=== PATIENT | female | born 1990 | race Caucasian/White ===

== ENCOUNTER 2016-11-26 10:21 | Emergency (ER) | payer BC ==
[~2016-11-26] VITALS: Ht 152.4 cm; Wt 86.2 kg
[~2016-11-26 10:21] MED LIST: LORCET 5-325 M1 EACH PO; MOTRIN IB200 MG PO; ORAL BIRTH CONTROL
[2016-11-26] MEDS ORDERED: ONDANSETRON ODT8 MG PO (12:45)
[2016-11-26] MEDS ORDERED: PERCOCET 5-3251 EACH PO (12:45)
== END 2016-11-26 13:09 | disposition home or self-care (01) ==
LOC: ED 10:21
DX: N20.1 Calculus of ureter (principal)
CPT/HCPCS: 80053; 81001; 84703; 85025; 96361; 96374; 99283; J1885; J7030

== ENCOUNTER 2018-08-05 13:11 | Emergency (ER) | payer OTHER ==
[~2018-08-05] VITALS: Ht 152.4 cm; Wt 73.0 kg
[~2018-08-05 13:11] MED LIST changes: +ONDANSETRON ODT8 MG PO; +PERCOCET 5-3251 EACH PO
== END 2018-08-05 18:51 | disposition home or self-care (01) ==
LOC: ED 13:11
DX: O00.90 Unspecified ectopic pregnancy without intrauterine pregnancy (principal); Z87.442 Personal history of urinary calculi; Z87.891 Personal history of nicotine dependence
CPT/HCPCS: 76801; 76817; 80053; 81001; 84702; 84703; 85025; 96374; 96375; 99284-25; J1885; J2405

== ENCOUNTER 2018-10-20 08:13 | Observation (INO) | payer OTHER ==
[~2018-10-20] VITALS: Ht 152.4 cm; Wt 71.2 kg
--- NOTE | 2018-10-20 12:40 | NUR ---
PT ARRIVED TO FLOOR VIA STRETCHER. REPORTS PAIN TOLERABLE. ORIENTED TO ROOM. ASSESSMENT COMPLETED. FLUIDS STARTED. CALL LIGHT IN REACH. NPO AT THIS TIME. DENIES FURTHER NEEDS.
--- NOTE | 2018-10-20 14:01 | NUR ---
PATIENT RESTING IN BED. VISITOR IN ROOM. CALL LIGHT WITHIN REACH. NO OTHER NEEDS AT THIS TIME
--- NOTE | 2018-10-20 15:05 | NUR ---
PATIENT IN BED. RN AND VISITOR IN ROOM. PATIENT IS GOING TO TAKE A SHOWER. IV WRAPPED. CALL LIGHT WITHIN REACH. NO OTHER NEEDS AT THIS TIME
--- NOTE | 2018-10-20 16:13 | NUR ---
THIS RN TO ROOM. PT REPORTS PAIN 4/10 TOLERABLE.DENEIS NAUSEA. CALL LIGHT IN REACH. NO NEEDS.
--- NOTE | 2018-10-20 17:36 | NUR ---
PATIENT RESTING IN BED. MOM IN ROOM. VITAL SIGNS AND I&O DONE. CALL LIGHT WITHIN REACH. NO OTHER NEEDS AT THIS TIME
--- NOTE | 2018-10-20 17:57 | NUR ---
PT CHARISMA FLOOR TO SURGERY
--- NOTE | 2018-10-20 19:03 | CONS ---
[facility] [address] [place], [place] [address] Signed DATE OF CONSULTATION: 10/20/2018 CHIEF COMPLAINT: Right lower quadrant abdominal pain. HISTORY OF PRESENT ILLNESS: Tom is a 28-year-old female, otherwise healthy, who awoke early this morning around 2:00 a.m. with right lower quadrant abdominal pain. It started periumbilical and became more localized to the right lower quadrant and now it is across the lower pelvis. She came to emergency room for evaluation. In the emergency room, her white count was 10.6 with a negative beta-hCG. An ultrasound was performed because of various previous pelvic issues and really no acute findings. Consequently, a CT scan was done and the appendix showed some mild enhancement with some mild periappendiceal haziness concerning for early appendicitis. I was therefore asked to admit her as a general surgeon on-call. In the meantime, she has received IV fluids along with her Rocephin and Flagyl. She said overall she is about the same. PAST MEDICAL HISTORY: Four spontaneous abortions, kidney stones, and left-sided ectopic . PAST SURGICAL HISTORY: Diaphragm placement and laparoscopy for the left fallopian tube ectopic . SOCIAL HISTORY: She does smoke a little bit. She does not drink. She is single and has one daughter who is age 7. 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 Dr. Cornelio Barksdale is her environmental consultant. She has no primary care provider per se. Her dad is Kushal. Her mother happens to be one of our registered nurses. She prefers the [facility]. FAMILY HISTORY: There is no family history to her knowledge. REVIEW OF SYSTEMS: She had 10 systems reviewed and these were all negative except her MAINFRAME ANALYST history. ALLERGIES: None. MEDICATIONS: None. PHYSICAL EXAMINATION: Electronically Signed By: LALITHA RODAS MD 10/20/18 1903 PATIENT NAME: TOM MONTES CONSULTATION DATE OF : 89 REPORT #: [id number] PHYSICIAN: LALITHA RODAS MD PCP: NO PRIMARY CARE PHYSICIAN REPORT IS CONFIDENTIAL AND NOT TO BE RELEASED WITHOUT AUTHORIZATION [facility] [address] [place], [place] [address] Signed VITAL SIGNS: Blood pressure 111/66, heart rate 86, respiratory rate 18, temperature is 98.2. She is 97% on room air. She is 5 feet tall and 71 kg. GENERAL: Tom is a 28-year-old female, who is lying supine in her hospital bed. Her sister is in the room. She does not appear systemically ill or toxic. LUNGS: Generally clear to auscultation bilaterally. HEART: Regular rate and rhythm. ABDOMEN: Tender in the right lower quadrant. LABORATORY DATA: Her white blood cell count is 10.6, neutrophils 78, hemoglobin 13. Electrolytes unremarkable. Liver function test negative. Beta-hCG negative. Urinalysis negative. RADIOGRAPHIC STUDIES: Ultrasound of the pelvis shows a little irregular band in the uterus, but the ovaries are fine. The CT scan shows the appendix somewhat hazy with a little periappendiceal haziness as well. It is somewhat posterior and somewhat lateral. ASSESSMENT AND PLAN: Tom is a 28-year-old female who appears to present with classic appendicitis. I reviewed with her the above findings in detail. They have already been online reading about appendicitis. I also gave her a [employer] brochure on appendicitis, which she can review that in more detail. We have reviewed the location and function of the appendix. We have discussed laparoscopic versus open appendectomy. We also reviewed the risks and benefits of surgery. She has expressed understanding and would like to proceed with surgery. Lalitha Rodas MD [facility]/MODL /[id number] cc: MD Lalitha Mcadams MD Copies: CORNELIO BARKSDALE MD Electronically Signed By: LALITHA RODAS MD 10/20/18 1903 PATIENT NAME: TOM MONTES CONSULTATION DATE OF : 89 REPORT #: [id number] PHYSICIAN: LALITHA RODAS MD PCP: NO PRIMARY CARE PHYSICIAN REPORT IS CONFIDENTIAL AND NOT TO BE RELEASED WITHOUT AUTHORIZATION [facility] [address] [place] [id number] Signed LALITHA RODAS MD ~ Electronically Signed By: LALITHA RODAS MD 10/20/18 190 PATIENT NAME: TOM MONTES MARGARETTE CONSULTATION DATE OF : 89 REPORT #: [id number] PHYSICIAN: LALITHA RODAS MD PCP: NO PRIMARY CARE PHYSICIAN REPORT IS CONFIDENTIAL AND NOT TO BE RELEASED WITHOUT AUTHORIZATION
--- NOTE | 2018-10-20 19:20 | NUR ---
RECEIVED SHIFT REPORT FROM DANNYOKMARIBELL JEFFREY AT BEDSIDE. FAMILY IN ROOM, PT IN OR AT THIS TIME.
--- NOTE | 2018-10-20 19:35 | NUR ---
PT ARRIVED FROM THEN OR. VSS, PT DROWSY, BUT EASILY AWAKENS AND FOLLOWS COMMANDS. PT ON RA, O2 SAT WNL. FAMILY IN ROOM. ASSESSMENT COMPELTE. LAP SITES X3 NOTED WITH GAUZE AND TAPE. ALL SITES CDI, WILL MONITOR. PT REPORTS 7/10 PAIN, BUT DENIES NEED FOR PAIN MEDICATIONS AT THIS TIME. DENIES NAUSEA, BOWEL TONES ACTIVE. IV FLUIDS INFUSING PER MD ORDERS, IV SITE WNL. PT DENIES FURTHER NEEDS, CALL LIGHT IN REACH.
--- NOTE | 2018-10-20 19:40 | NUR ---
PT ARRIVES BACK FROM SURGERY. VSS. PT RESTING IN BED. PRIMARY RN IN ROOM.
--- NOTE | 2018-10-20 19:45 | NUR ---
PT REPORTS FEELING "A LITTLE DIZZY". COOL RAG APPLIED TO PT'S FOREHEAD PER PT REQUEST. PT DENIES NAUSEA, VSS. PT STATES, "I GET LIKE THIS WHEN I'M AT THE HOSPITAL". NO FURTHER NEEDS, CALL LIGHT IN REACH. FAMILY AT BEDSIDE. NO SIGNS OF DISTRESS NOTED.
--- NOTE | 2018-10-20 19:46 | NUR ---
10/20/181945 [place],Sunni Akins 191: O2 MASK REMOVED. PATIENT ON ROOM AIR. PATIENT DROWSY, BUT EASILY AWAKENS TO VOICE. 1921: PATIENT MEDICATED FOR PAIN WITH IV DILAUDID. 1939: PATIENT TRANSFERRED BACK TO M/S ROOM 112. REPORT GIVEN TO Leanna ORNELAS/S EMILIANO.
--- NOTE | 2018-10-20 20:30 | NUR ---
SECOND SET POST OP VITALS COMPLETE. PT RESTING IN BED. TOLERATING FULL LIQUID DIET AT THIS TIME. NO NAUSEA REPORTED. PT C/O 11/30 PAIN IN ABDOMEN. PRN PO PAIN MEDICATION ADMINSITERED. IVF INFUSING WNL. CALL LIGHT IN REACH. NO ADDITIONAL REQUESTS AT THIS TIME.
--- NOTE | 2018-10-20 20:30 | NUR ---
VS COLLECTED AND STABLE. SBP IN 90'S, PT ASYMPTOMATIC. NO SIGNS OF DISTRESS NOTED, WILL MONITOR. DIE STORAGE WORKER AWARE AND AGREES IT NOT NECESSARY TO NOTIFY MD AT THIS TIME. WILL MONITOR FOR CHANGES. CALL LIGHT IN REACH.
--- NOTE | 2018-10-20 21:30 | NUR ---
VS COLLECTED. INFORMED BY EMILIANO WALLACE OF RR OF 25. PT ASYMPTOMATIC, NO SIGNS OF DISTRESS NOTED PER EMILIANO WALLACE. WILL MONITOR.
--- NOTE | 2018-10-20 22:45 | NUR ---
Patient ambulated to bathroom, SBA, gait steady. Patient reports increase of pain to 9/10 in RLQ of abdomen with ambulation, provided pillow for bracing with movement. Now resting in bed again, breathing is unlabored, reports that pain at rest is unchanged from previous, 11/30, states that pain level is tolerable and does not need pain medication at this time. Denies further needs, IVF infusing per order, call light within reach.
--- NOTE | 2018-10-20 23:30 | NUR ---
PT RESTING IN BED, RESPIRATIONS EVEN AND UNLABORED. NO SIGNS OF DISTRESS NOTED. PT REPORTS PAIN "JUST HURTS ON MY RIGHT SIDE, NOT SO MUCH IN THE MIDDLE". DRESSING TO LAP SITES X3 INTACT, PEA SIZED SHADOWING TO DRESSING NEAR UMBILICUS. WILL MONITOR. PT DENIES ADDITIONAL NEEDS, CALL LIGHT IN REACH. IV FLUIDS INFUSING PER MD ORDERS, IV SITE WNL.
--- NOTE | 2018-10-21 01:54 | NUR ---
VITALS AND I&OS DONE AND CHARTED. HELPED PT TO THE BATHROOM AND BACK TO BED. FRESH ICE WATER AND ICE PACK GIVEN. INFORMED RN OF LOW B\P. PT NEEDS NOTHING ELSE AT THIS TIME.
--- NOTE | 2018-10-21 04:20 | NUR ---
ASSESSMENT COMPLETE, NO NEW CONCERNS. PT AWAKE AND RESTING IN BED, NO DISTRESS NOTED. PT A/OX4, RATES PAIN 3/10, DENIES NEED FOR PAIN MEDICATION. LAP SITES X3 NOTED, NO NEW SHADOWING NOTED, (SEE PREVIOUS NOTE). DRESSING INTACT. VSS FROM 0200. PT STATES, "I NORMALLY RUN LIKE 100/80". PT UP SBA TO VOID, 300 OUTPUT. PT RETURNED TO BED, TOLERATED AMBULATION WELL. DENIED SOB, CHEST PAIN, AND DIZZINESS. FRESH ICE PROVIDED, SCD'S ON. NO FURTHER NEEDS, CALL LIGHT IN REACH.
--- NOTE | 2018-10-21 05:02 | NUR ---
PT A/OX4, VSS. SBP MAINTAINING IN 90'S, PT ASYMPTOMATIC, AND THIS IS USUAL PER PT. SBA WITH AMBULATION. IV FLUIDS INFUSING PER MD ORDERS, IV SITE WNL. FULL LIQUID DIET, TOLERATING WELL, NO NAUSEA THIS SHIFT. LAP SITES X3, SCANT SHADOWING TO SITE AT UMBILICUS. PAIN CONTROLLED WITH PRN PAIN MEDICATIONS. VOIDING QS, NO BM THIS SHIFT. ICE TO ABDOMEN, SCD'S IN PLACE. USES CALL LIGHT APPROPERIATELY.
--- NOTE | 2018-10-21 06:00 | NUR ---
VITALS AND I&OS DONE AND CHARTED. FRESH ICE WATER GIVEN. BEDSIDE TABLE AND CALL LIGHT IN REACH.
--- NOTE | 2018-10-21 06:39 | NUR ---
CALL LIGHT ANSWERED, SBA TO RESTROOM FOR VOID AND BACK TO BED. PT C/O 7-12/31 PAIN IN ABDOMEN. PRN PO PAIN MEDICATION ADMINSITERED. PT DENIES NAUSEA. CALL LIGHT IN REACH. NO ADDITIONAL REQUESTS AT THIS TIME.
--- NOTE | 2018-10-21 06:40 | OR ---
[facility] [address] [place], [place] [address] Signed DATE OF OPERATION: 10/20/2018 SURGEON: Lalitha Rodas MD PREOPERATIVE DIAGNOSIS: Acute appendicitis. POSTOPERATIVE DIAGNOSIS: Acute inflamed appendicitis. PROCEDURE PERFORMED: Laparoscopic appendectomy. ESTIMATED BLOOD LOSS: None. INDICATIONS: Tom is a 28-year-old lady, otherwise healthy. She awoke about 2 a.m. this morning with periumbilical pain that become localized to the right lower quadrant into the pelvis. She came to emergency room for evaluation. She was tender in the right lower quadrant with a white count of 10.6 and a negative beta-hCG. Ultrasound of the pelvis showed an irregular band in the uterus, but the ovaries were fine. CT scan then showed a mildly hazy appendix and some mild haziness around the appendix concerning for early acute appendicitis. I was asked to admit her as a general surgeon on-call. In the meantime, she has received her Rocephin and Flagyl along with some IV fluids. I met with Tom and her sister in her hospital room. Her mother happens to be one of our registered nurses. Tom has been online reading and making herself educated with respect to the appendix. I also brought a [employer] brochure and I gave that to her, so she can review that in more detail. We reviewed the above findings along with the location and function of the appendix. We have reviewed laparoscopic versus open appendectomy. They understand expected intraoperative and postoperative course. We did review the risks including, but not limited to bleeding, infection, scarring, change in contour of the skin, damage to bowel, appendiceal stump leak, postoperative intraabdominal abscess, incisional hernias, and other unforeseen comorbidities. She had expressed understanding and wished to proceed. PROCEDURE NOTE: Tom was taken into the operating room and placed in a supine position under general endotracheal tube anesthesia. She was already on her preoperative antibiotics. She was given heparin subcutaneously. SCDs were utilized. Mac catheter was inserted with Electronically Signed By: LALITHA RODAS MD 10/21/18 0640 PATIENT NAME: TOM MONTES OPERATIVE REPORT DATE OF : 89 REPORT #: [id number] PHYSICIAN: LALITHA RODAS MD PCP: NO PRIMARY CARE PHYSICIAN REPORT IS CONFIDENTIAL AND NOT TO BE RELEASED WITHOUT AUTHORIZATION [facility] [address] [place] [id number] Signed return of clear yellow urine without difficulty. She was then prepped and draped in the usual sterile fashion. All trocars were placed in usual positions under direct visualization of camera without difficulty. We had taken pictures throughout for photodocumentation. We were able to easily visualize the appendix, it was elevated in the right lower quadrant. The distal two-thirds of the appendix was clearly somewhat thickened and inflamed and injected. Base of the appendix was divided from the cecum with the help of a linear stapler. We then used a vascular load to divide the mesoappendix. Hemostasis was excellent on both staple lines. The appendix was then placed into an EndoCatch bag and taken out through the right subcostal trocar site. We used our laparoscopic suturing device to pass 0 Vicryl suture on either side of the fascia of the right subcostal trocar site. This suture was tied down to close this fascia primarily. After this, the gas was allowed to escape and the remaining trocars were removed. We used interrupted simple and [id number] 0 Vicryl sutures to close the fascia of the supraumbilical trocar site. Local anesthetic was then injected into all three trocar sites. Skin and dermis of each trocar site were then closed with interrupted 3-0 subcuticular Monocryl sutures. Dry gauze and tape were then applied to all incisions. Tom's Mac catheter was removed without difficulty. She is awakened from anesthesia, extubated in the OR, and taken into recovery room in stable condition. Lalitha Rodas MD [facility]/MODL /[id number] cc: MD Cornelio Goss MD Copies: LALITHA RODAS MD, MICHAEL JOHN MD ~ Electronically Signed By: LALITHA RODAS MD 10/21/18 0640 PATIENT NAME: TOM MONTES [facility] OPERATIVE REPORT DATE OF : 89 REPORT #: [id number] PHYSICIAN: LALITHA RODAS MD PCP: NO PRIMARY CARE PHYSICIAN REPORT IS CONFIDENTIAL AND NOT TO BE RELEASED WITHOUT AUTHORIZATION
--- NOTE | 2018-10-21 07:43 | NUR ---
REPORT RECEIVED FROM DIRECTOR SUPPLY CHAIN RN. PT IN BED. REPORTS PAIN 07/31. DENEIS NAUSEA. D5LR AT 75ML/HR. CALL LIGHT IN REACH. DENIES NEEDS.
--- NOTE | 2018-10-21 09:49 | NUR ---
ASSESSMENT COMPLETED. DRESSINGS DC'D PER ORDER. PT ABLE TO EAT 80% OF BREAKFAST W/O C/O NAUSEA OR VOMITTING. PAIN TOLLERABLE AT THIS TIME. BOWEL TONES ACTIVE. PT REPORTING PASSING SOME FLATUS. NO BM. CALL LIGHT IN REACH. NO OTHER NEEDS.
--- NOTE | 2018-10-21 11:12 | NUR ---
PT UP TO SHOWER. BACK TO BED NOW. IV FLUIDS STARTED. PT REPORTS PAIN 6/10 TOLERABLE AND REFUSED PAIN MEDICATION.
--- NOTE | 2018-10-21 12:00 | NUR ---
PT TOLERATED REGULAR DIET W/O C/O NAUSEA OR VOMITTING. REPORTS PAIN TOLERABLE. NO OTHER NEEDS. CALL LIGHT IN REACH
--- NOTE | 2018-10-21 12:19 | NUR ---
PT RESTING IN BED, TV ON. SHE IS ALERT, ORIENTED AND SEEMS PLEASANT. PAIN IS AT 4 WHILE STILL, IF SHE GETS UP-CLIMBS QUICKLY. THANKED ME FOR CHECKING, EXTENDED A BLESSING. WILL FOLLOW NEEDED
--- NOTE | 2018-10-21 12:40 | NUR ---
SET PATIENT UP FOR A SHOWER AFTER SHE ATE HER BREAKFAST.
--- NOTE | 2018-10-21 15:15 | NUR ---
PT UP TO BATROOM. VOIDED 400ML. BACK TO BED. PLAN ON WALK BEFORE DINNER.
--- NOTE | 2018-10-21 16:22 | NUR ---
DR RODAS CALLED AND UPDATED ON PT WELL PAIN CONTROL, ABILITY TO TOLERATE REGUALAR DIET WITHOUT C/O NAUSEA OR VOMITTING. PASSING FLATUS AND ACTIVE BOWEL TONES. INCISIONS WELL APPROXIMATED AND DRY. OKAY'D TO DISCHARGE PT HOME.
[2018-10-21] MEDS ORDERED: NORCO 5-325 TA1 EACH PO (16:40)
[2018-10-21] MEDS ORDERED: ACETAMINOPHEN325 M1 PO (16:43)
[2018-10-21] MEDS ORDERED: ADVIL200 MG PO (16:44)
== END 2018-10-21 17:00 | disposition home or self-care (01) ==
LOC: ED 08:13 → MS 08:14
PROVIDERS: ADMIT Colon & Rectal Surgery
PROC: 0DTJ4ZZ Resection of Appendix, Percutaneous Endoscopic Approach (ICD-10-PCS; principal; 2018-10-20 17:30)
DX: K35.80 Unspecified acute appendicitis (principal); F17.210 Nicotine dependence, cigarettes, uncomplicated; Z87.442 Personal history of urinary calculi
CPT/HCPCS: 00840; 74177; 76830; 76856; 80053; 81001; 84703; 85025; 96361; 96368; 96372; 99285-25; 99406; G0378; J0696; J1100; J1170; J1644; J1885; J2704; J3010; J7040; J7120; Q9967

== ENCOUNTER 2024-07-13 19:46 | Emergency (ER) | payer OTHER ==
[~2024-07-13] VITALS: Ht 152.4 cm; Wt 62.6 kg
[~2024-07-13 19:46] MED LIST changes: +ACETAMINOPHEN325 M1 PO; +ADVIL200 MG PO; +NORCO 5-325 TA1 EACH PO
[2024-07-13] MEDS ORDERED: METOPROLOL SUCC25 MG PO (19:54)
[2024-07-13] MEDS ORDERED: FLUOXETINE HCL20 MG PO (19:55)
[2024-07-13 20:27] LABS: BASOPHILS 0.4 % (0-2); EOSINOPHILS 0.6 % (0-6); HEMATOCRIT 39.7 % (35.0-50.0); HEMOGLOBIN 13.6 g/dL (12.0-18.0); LYMPHOCYTES 13.4 % (24-44); MCH 29.6 (27-36); MCHC 34.3 g/dl (30-36); MCV 86.5 fl (81-99); MONOCYTES 6.1 % (0-12); NEUTROPHILS 79.5 % (39-80); PLATELET COUNT 299 K/uL (140-440); RBC 4.59 M/ul (4.3-5.7); RDW 12.3 (10.5-15.0)
[2024-07-13 20:44] LABS: INR 1.05 (0.80-1.30); PROTIME 13.6 Sec (11.2-14.2)
[2024-07-13 20:46] LABS: ALBUMIN 3.9 g/dL (3.4-5.0); ALBUMIN/GLOBULIN RATIO 1.11 (1.1-2.4); ALKALINE PHOSPHATASE 54 U/L (46-116); ALT (SGPT) 23 U/L (14-59); ANION GAP 15.3 (7-21); AST (SGOT) 13 U/L (15-37); BILIRUBIN, TOTAL 0.3 mg/dL (0.2-1.0); BUN/CREATININE RATIO 12.22 (6.0-28.6); CALCIUM 9.2 mg/dL (8.5-10.1); CARBON DIOXIDE 26 mmol/L (21-32); CHLORIDE 101 mmol/L (98-107); GLOMERULAR FILTRATION RATE,EST 87 mL/min (>60); MAGNESIUM 1.5 mg/dL (1.8-2.4); POTASSIUM 3.3 mmol/L (3.5-5.1); PROTEIN, TOTAL 7.4 g/dL (6.4-8.2); UREA NITROGEN 11 mg/dL (7-18)
[2024-07-13] MEDS ORDERED: ondansetron HCL 4 MG/2 ML VIAL IV ONE (21:00)
[2024-07-13] MEDS ORDERED: POTASSIUM CHLORIDE 10 MEQ TABCR PO ONE (21:00)
[2024-07-13] MEDS ORDERED: MAGNESIUM SULFATE 2 GM/50 ML BAG IV ONE (21:00)
[2024-07-13] MEDS ORDERED: MAGNESIUM OXID400 M1 PO (21:02)
[2024-07-13 22:04] VITALS: BP 107/70
--- NOTE | 2024-07-14 11:52 | EKG ---
[facility] [address] [facility] [place], [place] [address] Signed Normal sinus rhythm Normal ECG No previous ECGs available Confirmed by Loc Felipe MD ([id number]) on 07/14/2024 11:51:59 AM Electronically Signed By: LOC FELIPE MD 07/14/24 1152 PATIENT NAME: TOM MONTES MARGARETTE Electrocardiogram DATE OF : 89 PHYSICIAN: LOC FELIPE MD REPORT #: [id number] REPORT IS CONFIDENTIAL AND NOT TO BE RELEASED WITHOUT AUTHORIZATION
== END 2024-07-13 22:04 | disposition home or self-care (01) ==
LOC: ED 19:46
PROVIDERS: Family Medicine
DX: E83.42 Hypomagnesemia (principal); E87.6 Hypokalemia; R00.2 Palpitations; F17.200 Nicotine dependence, unspecified, uncomplicated; Z79.899 Other long term (current) drug therapy
CPT/HCPCS: 36415; 80053; 83735; 84484; 84703; 85025; 85610; 93005; 93010; 94799; 96365; 96375; 99284-25; A9270; J2405; J3475